=== PATIENT | female | born 1980 | race Caucasian/White ===

== ENCOUNTER 2024-12-19 05:00 | Emergency (ER) | payer SELFPAY ==
[2024-12-19 05:10] VITALS: BP 101/66; PULSE 106; RESP 16; TEMP 36.9; O2SAT 100
== END 2024-12-19 08:16 | disposition left against medical advice (07) ==
LOC: ANHED 08:01
DX: S51.012A Laceration without foreign body of left elbow, initial encounter (principal)
CPT/HCPCS: 99199

== ENCOUNTER 2025-01-21 09:05 | Emergency (ER) | payer OTHER, SELFPAY ==
[2025-01-21 09:17] VITALS: BP 109/71; PULSE 96; RESP 16; TEMP 36.4; O2SAT 99
[2025-01-21 09:25] LABS: EDSTREPNEGPOS1 Negative (Negative)
--- NOTE | 2025-01-21 09:29 | ED.GENADULT ---
HPI - General Adult General Chief complaint: Upper Respiratory Infection Stated complaint: SORE THROAT Source: patient Mode of arrival: ambulatory Limitations: no limitations History of Present Illness HPI narrative: Patient presents for evaluation of sore throat. Symptom onset last night. No recent sick contacts to her knowledge. She denies any fever, chills, nausea, vomiting, cough, SOB, or otalgia. She is not taking any medications to assist with her symptoms. She does not smoke. She has a history of strep pharyngitis and her current symptoms are consistent with those expeienced in the past with strep. Related Data Home Medications ?Medication ?Instructions ?Recorded ?Confirmed ?Last Taken ?Type escitalopram oxalate 20 mg tablet mg 01/21/25 Unknown History lisdexamfetamine 20 mg capsule mg 01/21/25 Unknown History lorazepam 0.5 mg tablet mg 01/21/25 Unknown History Allergies Allergy/AdvReac Type Severity Reaction Status Date / Time No Known Allergies Allergy Verified 01/21/25 09:14 Review of Systems Review of Systems: CONSTITUTIONAL: Denies fever, chills, or sweats. EYES: Denies visual changes, redness, or discharge. ENT: Reports sore throat. Denies rhinorrhea, congestion, or otalgia. CARDIOVASCULAR: Denies chest pain, palpitations, or edema. RESPIRATORY: Denies cough or dyspnea. GASTROINTESTINAL: Denies abdominal pain, nausea, vomiting, or diarrhea. GENITOURINARY: Denies dysuria or hematuria. SKIN: Denies rash or itching. MUSCULOSKELETAL: Denies back pain, joint pain, or myalgia. NEUROLOGIC: Denies headache, numbness, dizziness, or weakness. PSYCHIATRIC: Denies anxiety or depression. [facility] Past Medical History Medical History No pertinent past medical history Surgical History Surgical History No pertinent past surgical history Family History Family History Mother Family history non-contributory Social History Social History Smoking status: Never smoker Substance use: never Living arrangements: with family Gender identity (if verbalized by the patient): Female Spiritual care concerns: No Exam Narrative: GENERAL: Well-appearing, well-nourished, and in no acute distress. HEAD: Normocephalic, atraumatic. EYES: PERRLA and EOMI. ENT: Nares clear, no rhinorrhea or epistaxis. Mucous membranes moist. Oropharynx without tonsillar hypertrophy exudate or other lesions. Bilateral TMs pearly laureano nonbulging NECK: Supple. No adenopathy or masses. No carotid bruits or JVD CHEST: Clear to auscultation. No respiratory distress. No wheezes rales or rhonchi HEART: Regular rate and rhythm. No murmur heard. Normal peripheral pulses. ABDOMEN: Soft, nontender, nondistended, normal active bowel sounds. EXTREMITIES: Normal range of motion. No edema. SKIN: Warm, dry, no rash. NEURO: No focal deficits. Alert and oriented x3. PSYCH: Normal mood and affect. Course Course Emergency Course: This is a 44-year-old female who presented for evaluation of sore throat. Rapid strep negative. Will send throat culture. Through shared decision making opted to proceed with abx therapy as her current symptoms are consistent with those experienced with strep in the past. Will dc with augmentin. Increase hydration. OTC agents for symptom management. Follow up with primary provider. Go to the ER for worsening symptoms. Pt in agreement with plan of care. Level of Care: Express Care Visit Vital Signs Vital signs: Vital Signs Temperature 36.4 C L 01/21/25 09:17 Pulse Rate 96 01/21/25 09:17 Respiratory Rate 16 01/21/25 09:17 Blood Pressure 109/71 01/21/25 09:17 Pulse Oximetry 99 01/21/25 09:17 Temperature 36.4 C L 01/21/25 09:17 Pulse Rate 96 01/21/25 09:17 Respiratory Rate 16 01/21/25 09:17 Blood Pressure 109/71 01/21/25 09:17 Pulse Oximetry 99 01/21/25 09:17 Medical Decision Making Vital Signs Vital Signs: Vital Signs Temperature 36.4 C L 01/21/25 09:17 Pulse Rate 96 01/21/25 09:17 Respiratory Rate 16 01/21/25 09:17 Blood Pressure 109/71 01/21/25 09:17 Pulse Oximetry 99 01/21/25 09:17 Temperature 36.4 C L 01/21/25 09:17 Pulse Rate 96 01/21/25 09:17 Respiratory Rate 16 01/21/25 09:17 Blood Pressure 109/71 01/21/25 09:17 Pulse Oximetry 99 01/21/25 09:17 Lab Data Labs: Lab Results 01/21/25 Range/Units 09:24 POC Grp A Strep Screen Negative (Negative) Discharge Plan Discharge Clinical Impression: Pharyngitis Patient Disposition: Home Condition: Stable Instructions: Antibiotic Form, Pharyngitis (ED) Patient Language: [place] Prescriptions: New amoxicillin-pot clavulanate 875-125 mg tablet 1 tablet PO Q12H Qty: 20 0RF No Action lorazepam 0.5 mg tablet escitalopram oxalate 20 mg tablet lisdexamfetamine 20 mg capsule Follow-up/Referrals: Mahad,J Luis [Other] Time of Disposition: :
== END 2025-01-21 09:30 | disposition home or self-care (01) ==
PROVIDERS: Emergency Provider Nurse Practitioner
DX: J02.9 Acute pharyngitis, unspecified (principal)
CPT/HCPCS: 87081; 87880; 99203; G0463